=== PATIENT | male | born 1940 | race Caucasian/White ===

== ENCOUNTER 2016-08-28 07:22 | Day surgery (SDC) | payer OTHER, MEDICARE ==
[2016-08-27 14:36] VITALS: BMI 25.9
[2016-08-28] MEDS ORDERED: PROPOFOL 20 ML ONE (08:58)
[2016-08-28] MEDS ORDERED: ePHEDrine SULFATE 50 MG/1 ML AMPULE ONE (08:58)
[2016-08-28] MEDS ORDERED: LIDOCAINE HCL/PF 1% SDV 5ML VIAL ONE (08:58)
[2016-08-28 09:05] VITALS: TEMP 98.2
[2016-08-28 12:34] VITALS: BP 120/63; PULSE 73
--- NOTE | 2016-08-29 12:36 | PATH ---
Surgical Pathology Report Patient Name: YELENA HAMILTON [facility]. Rec. #: [id number] /Age/Gender: 1940 (Age: 76) / M Account: [id number] Location: [facility]-ENDOSCOPY Taken: 08/28/2016 Received: 08/28/2016 Reported: 08/29/2016 Physicians: Robles Corbett M.D. Specimen(s) Received A: BX POLYP CECAL POLYP B: BX RIGHT COLON POLYP C: BX TRANSVERSE COLON POLYP D: BX RECTAL POLYP Clinical History Polyp surveillance Polyps, diverticulosis, hemorrhoids Final Diagnosis A. COLON, CECUM, POLYP, BIOPSY: POLYPOID FRAGMENTS OF COLONIC MUCOSA WITH SURFACE HYPERPLASTIC CHANGE. B. COLON, RIGHT, POLYP BIOPSY: TUBULAR ADENOMA. C. COLON, TRANSVERSE, POLYP, BIOPSY: POLYPOID FRAGMENTS OF COLONIC MUCOSA WITH SURFACE HYPERPLASTIC CHANGE. D. RECTUM, POLYP, BIOPSY: HYPERPLASTIC POLYP. Electronically Signed Damian Pretty M.D. Gross Description A. Received in formalin, labeled "biopsy cecal polyp" is a roberts, irregular portion of soft tissue measuring 0.5 cm in greatest dimension. The specimen is submitted in toto in one cassette. B. Received in formalin, labeled "biopsy right colon polyp" is a roberts, irregular portion of soft tissue measuring 0.3 cm in greatest dimension. The specimen is submitted in toto in one cassette. C. Received in formalin, labeled "biopsy transverse colon polyp" is a roberts, irregular portion of soft tissue measuring 0.5 cm in greatest dimension. The specimen is submitted in toto in one cassette. D. Received in formalin, labeled "biopsy rectal polyp" is a roberts, irregular portion of soft tissue measuring 0.3 cm in greatest dimension. The specimen is submitted in toto in one cassette. DL08/28/2016 saudi08/28/2016
== END 2016-08-28 10:05 | disposition home or self-care (01) ==
LOC: JASU-ENDO 07:22
PROVIDERS: ATTEND Internal Medicine Gastroenterology
PROC: 0DBM8ZX Excision of Descending Colon, Via Natural or Artificial Opening Endoscopic, Diagnostic (ICD-10-PCS; 2016-08-28)
PROC: 0DBP8ZX Excision of Rectum, Via Natural or Artificial Opening Endoscopic, Diagnostic (ICD-10-PCS; 2016-08-28)
PROC: 0DBL8ZX Excision of Transverse Colon, Via Natural or Artificial Opening Endoscopic, Diagnostic (ICD-10-PCS; 2016-08-28)
PROC: 0DBK8ZX Excision of Ascending Colon, Via Natural or Artificial Opening Endoscopic, Diagnostic (ICD-10-PCS; 2016-08-28)
PROC: 0DBH8ZX Excision of Cecum, Via Natural or Artificial Opening Endoscopic, Diagnostic (ICD-10-PCS; principal; 2016-08-28 08:30)
DX: Z12.11 Encounter for screening for malignant neoplasm of colon (principal); Z86.010 Personal history of colon polyps; D12.0 Benign neoplasm of cecum; D12.2 Benign neoplasm of ascending colon; D12.3 Benign neoplasm of transverse colon; K62.1 Rectal polyp; K57.30 Diverticulosis of large intestine without perforation or abscess without bleeding; K64.8 Other hemorrhoids
CPT/HCPCS: 88305-TC